=== PATIENT | female | born 1985 ===

== ENCOUNTER → 2019-08-26 17:36 | Outpatient (BNVA) | payer OTHER, SELFPAY | PROVIDERS: Family Provider Nurse Practitioner Family; PCP Nurse Practitioner Family; Visit Provider Nurse Practitioner | DX: J02.9 Acute pharyngitis, unspecified (principal) | CPT/HCPCS: 87081; 87880 ==

== ENCOUNTER → 2022-06-07 18:20 | Outpatient (BNVA) | payer OTHER, SELFPAY | PROVIDERS: Family Provider Nurse Practitioner Family; Visit Provider Emergency Medicine | DX: J02.9 Acute pharyngitis, unspecified (principal) | CPT/HCPCS: 87071; 87880 ==

== ENCOUNTER 2025-04-15 15:51 | Outpatient (CLI) | payer SELFPAY ==
[2025-04-15 17:54] LABS: HF Add Manual Diff No
[2025-04-15 17:59] LABS: Hematocrit 39.0 % (36-47); Hemoglobin 12.90 g/dL (11.27-16.99); Mean Corpuscular HGB Conc 33.1 g/dL (30-55); Mean Corpuscular Hemoglobin 30.1 pg (27-33); Mean Corpuscular Volume 91.1 fl (85-98); Nucleated Red Blood Cells % 0 %; Platelet Count 242 10^3/cmm (157-399); Red Blood Count 4.28 10^6/uL (3.85-5.65); White Blood Count 8.03 10^3/uL (3.29-11.43)
[2025-04-15 19:03] LABS: Alanine Aminotransferase 9 U/L (0-33); Albumin Level 4.7 g/dL (3.5-5.2); Alkaline Phosphatase 66 U/L (35-105); Anion Gap 15.7 (5-19); Aspartate Amino Transferase 15 U/L (0-32); Blood Urea Nitrogen 13 mg/dL (6-20); Calcium 9.3 mg/dL (8.5-10.5); Carbon Dioxide 25 mmol/L (22-29); Chloride 102 mmol/L (98-107); Cholesterol 225 mg/dL (0-200); Globulin 3.3 g/dL (1.3-4.6); Glucose 81 mg/dL (65-115); HDL Cholesterol 84 mg/dL (60-100); Osmolality Calculated 287 mOsm/kg (285-295); Potassium 3.7 mmol/L (3.5-5.1); Sodium 139 mmol/L (136-145); Thyroid Stimulating Hormone 1.36 uIU/mL (0.27-4.20); Total Protein 8.0 g/dL (6.6-8.7); Triglycerides 46 mg/dL (0-150)
[2025-04-15 20:11] LABS: Estmated Average Glucose 97; Hemoglobin A1C 5.0 % (4.0-6.0)
== END 2025-04-15 15:52 | disposition home or self-care (01) ==
LOC: LAB 15:53
PROVIDERS: Visit Provider Dermatology
DX: Z01.89 Encounter for other specified special examinations (principal)
CPT/HCPCS: 36415